=== PATIENT | female | born 1990 | race Caucasian/White ===

== ENCOUNTER 2022-07-18 12:56 | Emergency (ER) | payer SELFPAY ==
[~2022-07-18] VITALS: Ht 152.4 cm; Wt 61.2 kg
[2022-07-18 13:04] VITALS: BP 128/83
[2022-07-18] MEDS ORDERED: AMOX1TAB16 MT (15:20)
[2022-07-18] MEDS ORDERED: IBUP-2028 MT (15:20)
== END 2022-07-18 15:41 | disposition home or self-care (01) ==
LOC: ER 12:56
DX: R51.9 Headache, unspecified (principal); J45.909 Unspecified asthma, uncomplicated
CPT/HCPCS: 81025; 99283